=== PATIENT | female | born 1985 | race African-American/Black ===

== ENCOUNTER 2019-06-28 20:50 | Emergency (ER) | payer OTHER ==
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
--- NOTE | 2019-06-28 23:06 | ED ---
- HPI Summary HPI Summary: This is a 34 year old 23 weeks female with past medical history of PCOS and endometriosis with a chief complaint of abdominal cramping since Tuesday. On Tuesday morning, she also noticed blood on the toilet paper, and was evaluated at her doctors office, where a UA was found to be normal. The cramping occurred in the suprapubic area and radiated around the back all the way to the spine. It was sharp, intermittent pain lasting about an hour. Today, it progressed to constant cramping in the same region. She states that she took a baby ASA without any relief. She has had two previous miscarriages, both occuring at approximately 4 weeks. Her current was rated as high risk due to endometriosis. She also states that for the duration of her , her left leg was 2x the size of her right leg, but a Doppler US showed no DVT, and this was decided to be edema due to the way baby is laying. She denies any vaginal bleeding. She denies fever, headache, diarrhea, chest pain or SOB. - History of Current Complaint Chief Complaint: EDOBProblems Stated Complaint: 23 WKS PREG ABD PAIN PER PT Time Seen by Provider: 06/28/19 22:20 Pain Intensity: 4 - Assessment Hx Now: No - seeing doctor about irregular cycles - Allergies/Home Medications Allergies/Adverse Reactions: Allergies Allergy/AdvReac Type Severity Reaction Status Date / Time acetaminophen Allergy Itching Verified 06/28/19 23:10 [From Tylenol-Codeine #3] coconut oil Allergy Itching Verified 06/28/19 23:10 codeine Allergy Itching Verified 06/28/19 23:10 [From Tylenol-Codeine #3] shellfish derived Allergy Anaphylatic Verified 06/28/19 23:10 Shock Home Medications: Home Medications 19 Tablet 1 tab PO DAILY WITH MEAL 06/28/19 [History] PMH/Surg Hx/FS Hx/Imm Hx Endocrine/Hematology History: Denies: Hx Diabetes, Hx Thyroid Disease Cardiovascular History: Denies: Hx Hypertension Respiratory History: Reports: Hx Asthma Denies: Hx Chronic Obstructive Pulmonary Disease (COPD) GI History: Denies: Hx Ulcer - Surgical History Surgery Procedure, Year, and Place: tonsils, adenoids removed at 20 years old Infectious Disease History: No Infectious Disease History: Denies: Hx Clostridium Difficile, Hx Hepatitis, Hx Human Immunodeficiency Virus (HIV), Hx of Known/Suspected MRSA, Hx Shingles, Hx Tuberculosis, Traveled Outside the [place] in Last 30 Days - Family History Known Family History: Positive: Non-Contributory - Social History Alcohol Use: Occasionally Substance Use Type: Reports: None, Marijuana Smoking Status (MU): Former Smoker Amount Used/How Often: quit 2 weeks ago Review of Systems Negative: Fever Negative: Chest Pain Negative: Shortness Of Breath Positive: Abdominal Pain All Other Systems Reviewed And Are Negative: Yes Physical Exam - Physical Exam Triage Information Reviewed: Yes Vital Signs Reviewed: Yes Appearance: Positive: Well-Appearing Skin: Positive: Warm, Dry Head/Face: Positive: Normal Head/Face Inspection Eyes: Positive: Normal, Conjunctiva Clear ENT: Positive: Pharynx normal Respiratory/Lung Sounds: Positive: Clear to Auscultation, Breath Sounds Present Cardiovascular: Positive: Normal, RRR Abdomen Description: Positive: Other: - mild suprapubic tenderness Bowel Sounds: Positive: Present Musculoskeletal: Positive: Normal Neurological: Positive: Normal Psychiatric: Positive: Normal Procedures - Sedation Patient Received Moderate/Deep Sedation with Procedure: No Diagnostics - Vital Signs Vital Signs Temp Pulse Resp BP Pulse Ox 06/28/19 21:00 98.2 F 100 16 145/86 98 - Laboratory Lab Statement: Any lab studies that have been ordered have been reviewed, and results considered in the medical decision making process. Course/Dx - Course Course Of Treatment: 34 year old [id number] at 23 weeks presents with cramping for past 3 days. had spotting on tuesday that has resolved. It was intermittent every hour and now is constant. Denies any nausea vomiting. No fevers. Follows with ob in [place]. Has history of endometriosis. On exam patient appears comfortable. Does have some mild lower abdominal tenderness. discussed with dr charles who says to send to OB. - Differential Diagnosis/HQI/PQRI: Intrauterine , UTI, Other: - labor - Diagnoses Provider Diagnoses: Abdominal pain during Discharge ED - Sign-Out/Discharge Documenting (check all that apply): Patient Departure - Discharge Plan Condition: Stable Disposition: TRANSFER TO OB ([facility]) Referrals: Shannan Lagunas MD [Primary Care Provider] - Additional Instructions: go immediately to OB - Billing Disposition and Condition Condition: STABLE Disposition: Transfer to OB ([facility]) - Attestation Statements Provider Attestation: I was available for consultation for this patient. I did not evaluate the patient or participate in any medical decision making or disposition decisions unless I am specifically named in the chart as having consulted on the patient. If I have consulted on the patient, please see my own ED note on the patient encounter. Alexus Eric MD
[2019-06-28 23:40] VITALS: BP 125/97
== END 2019-06-28 23:37 | disposition home or self-care (01) ==
LOC: ED 20:50
DX: O23.42 Unspecified infection of urinary tract in pregnancy, second trimester (principal); Z3A.23 23 weeks gestation of pregnancy; O26.892 Other specified pregnancy related conditions, second trimester; R10.9 Unspecified abdominal pain; Z87.891 Personal history of nicotine dependence; Z79.899 Other long term (current) drug therapy; Z88.5 Allergy status to narcotic agent
CPT/HCPCS: 76815; 99282